=== PATIENT | male | born 1955 | race Caucasian/White ===

== ENCOUNTER → 2017-12-23 07:05 | Outpatient (CLI) | payer OTHER, SELFPAY ==
[2017-12-23 07:50] LABS: AST(SGOT) 34 U/L (15-37); Alanine Aminotransfer ALT/SGPT 41 U/L (16-61); Albumin, Serum 3.8 g/dL (3.2-5.0); Alkaline Phosphatase 57 U/L (45-117); Bilirubin, Direct 0.16 mg/dL (0.00-0.30); Cholesterol 135 mg/dL (200); Globulin 3.2 g/dL (2.2-4.2); High Density Lipoprotein 72 mg/dL; Triglycerides 108 mg/dL
[2017-12-23 07:51] LABS: Very Low Density Lipoprotein 22 mg/dL (5-40)
== END ==
PROVIDERS: Family Provider Family Medicine; PCP Family Medicine; Visit Provider Internal Medicine Cardiovascular Disease
DX: E78.5 Hyperlipidemia, unspecified (principal); Z79.899 Other long term (current) drug therapy
CPT/HCPCS: 36415; 80061; 80076

== ENCOUNTER 2021-12-27 14:15 | Emergency (ER) | payer OTHER, SELFPAY ==
[2021-12-27 14:16] VITALS: BP 126/72; PULSE 61; RESP 15; TEMP 36.8; O2SAT 98; BMI 26.2
[2021-12-27 14:26] VITALS: BP 124/74; BP 125/69; BP 129/68; PULSE 56; PULSE 59
--- NOTE | 2021-12-27 14:43 | CT_ITS ---
STUDY: CT BRAIN WITHOUT CONTRAST REASON FOR EXAM: Male, 66 years old. Dizziness. Headaches. Visual changes. RADIATION DOSAGE (If Supplied By Facility): CTDIvol = ( 44.99 ) mGy, DLP = ( 812.98 ) mGycm TECHNIQUE: Transaxial CT imaging of the brain was performed without administration of intravenous contrast material. Individualized dose optimization techniques were used for this CT. COMPARISON: No relevant priors. FINDINGS: Normal soft tissue structures. Normal calvarium. Normal size ventricles and extra-axial spaces for the patient''s age. Normal white matter tracts of the cerebral hemispheres. Normal basal ganglia and thalami. Normal brainstem. Normal cerebellum. There is no intracranial hemorrhage. There are no findings of an acute ischemic infarction. Normal visualized paranasal sinuses. CT/Brain/Head without Contrast IMPRESSION: Normal unenhanced CT scan of the brain. Electronically Signed: Socrates Gustafson MD at 15:23 EDT ,
--- NOTE | 2021-12-27 14:44 | EX.ED.DYSGE1 ---
HPI History of Present Illness Chief Complaint: General Illness Narrative Narrative: Patient presents with headache which has been intermittent for about 5 to 6 days at the same time he has 2 to 3-second episodes of blurred vision. He is asymptomatic currently. He has no weakness in arms or legs. He has no confusion. He has no nausea or vomiting. No paresthesias, no sensory deficits. He has no neck pain or stiffness. No history of trauma. [facility] Medical History (Updated 12/27/21 @ 16:[address] Luis Arevalo MD) Asthma Atherosclerotic heart disease of [place] coronary artery without angina pectoris Hyperlipidemia Old lateral wall myocardial infarction (03/13/15) Home Medications aspirin 81 mg tablet,delayed release 81 mg PO QDAY tab 12/21/17 [History Last Taken Unknown] albuterol sulfate 90 mcg/actuation aerosol inhaler 1 puff INHALATION Q6H PRN 12/24/17 [History Last Taken Unknown] omeprazole 40 mg capsule,delayed release 40 mg PO DAILY PRN 12/27/20 [History Last Taken Unknown] atorvastatin 80 mg tablet 80 mg PO QHS #90 tab 09/26/21 [Rx Last Taken Unknown] clopidogrel 75 mg tablet 75 mg PO QDAY #90 tab 09/26/21 [Rx Last Taken Unknown] metoprolol succinate 25 mg tablet,extended release 24 hr 12.5 mg PO DAILY #45 tab 12/13/21 [Rx Last Taken Unknown] Allergy/AdvReac Type Severity Reaction Status Date / Time No Known Allergies Allergy Verified 12/27/20 15:38 Family History Father CAD (coronary artery disease) CVA (cerebral vascular accident) Surgical History H/O arthroscopic knee surgery History of coronary artery stent placement (03/13/15) Social History Smoking Status: Unknown if ever smoked ROS ROS ED ROS Narrative Past medical history: Reviewed Medications: Reviewed Social history: Noncontributory Review of systems: All systems negative except as indicated General: No fever Eyes: As in HPI ENT: No upper airway congestion, normal voice Neck: No neck pain Cardiovascular: No chest pain Respiratory: No shortness of breath or cough Gastrointestinal: No abdominal pain, nausea vomiting or diarrhea Genitourinary: No dysuria Musculoskeletal: Denies myalgias no difficulty with ambulation Skin: No rash Neurological: Headache as in HPI. No memory loss, confusion or any focal weakness. Otherwise normal. Psych: No recent behavioral changes Hematologic: No easy bleeding or easy bruising EXAM Physical Exam Narrative Exam Narrative: Physical exam General: Well nourished, Well developed, No Acute Distress Head: Normocephalic, Atraumatic. No tenderness along the temporal artery region. Eyes: Conjunctiva not pale. Pupils are 3 mm and reactive. Visual acuity shows 20/30 and the right eye. No saccade or nystagmus. ENT: Moist mucous membranes Neck: Supple, Nontender, No lymphadenopathy Cardiovascular: Regular rate, Regular rhythm Respiratory: No distress, CTA bilaterally Abdomen: Soft, Nontender, Nondistended Back: Nontender, Normal Inspection. Negative for: CVA tenderness Extremities: Nontender, No edema Skin: Normal color, No rash Neurological: Alert, Normal Strength, Normal Sensation. Patient has normal cerebellar function including hohavx-uc-dcsm, qzcw-wj-ssku, normal Romberg and normal gait without ataxia. Psychological: Normal affect Const Vital Signs: 12/27/21 14:16 12/27/21 14:22 12/27/21 14:26 Temperature 98.2 F Temperature Source Temporal Pulse Rate 61 Pulse Rate [Lying] 56 L Pulse Rate [Sitting (for 1 minute prior to obtaining)] 59 L Pulse Rate [Standing (for 1 minute prior to obtaining)] 59 L Respiratory Rate 15 Respiratory Effort Normal Respiratory Pattern Normal Blood Pressure 126/72 H Blood Pressure [Lying] 129/68 H Blood Pressure [Sitting (for 1 minute prior to obtaining)] 125/69 H Blood Pressure [Standing (for 1 minute prior to obtaining)] 124/74 H Blood Pressure Mean 90 Blood Pressure Mean [Lying] 88 Blood Pressure Mean [Sitting (for 1 minute prior to obtaining)] 87 Blood Pressure Mean [Standing (for 1 minute prior to obtaining)] 90 Pulse Ox 98 Oxygen Delivery Method Room Air MDM MDM MDM Narrative Medical decision making narrative: Intraocular pressure done by me after tetracaine insertion shows intraocular pressure of [address] is negative. Patient appears well I do believe he may need an outpatient MRI for his headaches however right now there seems to be no neurological deficit and he appears well. I will discharge him in stable condition with ophthalmology and neurology follow-up. Lab Data Labs: Laboratory Results - last 24 hr 12/27/21 12/27/21 12/27/21 14:45 14:45 15:25 WBC 5.9 RBC 4.56 L Hgb 14.7 Hct 41.5 MCV 91.0 MCH 32.2 H MCHC 35.4 RDW Std Deviation 44.1 H RDW Coeff of Bib 13.2 Plt Count 184 MPV 10.5 Immature Gran % (Auto) 0.200 Neut % (Auto) 60.6 Lymph % (Auto) 30.1 [place] % (Auto) 8.1 Eos % (Auto) 0.5 Baso % (Auto) 0.5 Absolute Neuts (auto) 3.6 Absolute Lymphs (auto) 1.79 Nucleated RBC % 0 ESR 1 Sodium Cancelled 138 Potassium Cancelled 3.5 Chloride Cancelled 106 Carbon Dioxide Cancelled 28.0 Anion Gap Cancelled 4 L BUN Cancelled 10 Creatinine Cancelled 0.84 Estim Creat Clear Calc Cancelled 83.06 Est GFR (MDRD) Af Amer Cancelled 117 Est GFR (MDRD) Non-Af Cancelled 97 BUN/Creatinine Ratio Cancelled 11.8 Glucose Cancelled 108 H Calcium Cancelled 8.6 Total Bilirubin Cancelled 0.60 AST Cancelled 34 ALT Cancelled 46 Alkaline Phosphatase Cancelled 66 Total Protein Cancelled 6.6 Albumin Cancelled 3.6 Globulin Cancelled 3.0 Albumin/Globulin Ratio Cancelled 1.2 Radiography Diagnostic Testing: Clinical Impression(s) from Imaging Studies Brain CT 12/27/21 14:43 IMPRESSION: Normal unenhanced CT scan of the brain. Electronically Signed: Socrates Gustafson MD at 15:23 EDT , Sinus rhythm with a rate of 55. Normal ME and QTc intervals. No ischemic changes. Interpreted by emergency doctor Discharge Plan Triage Chief Complaint: General Illness ED Provider: Luis Arevalo Dx/Rx/DC Orders Clinical Impression: Headache, Acute eye pain Instructions: Medicine for Pain, Understanding Headache Pain Prescriptions: No Action aspirin [Adult Low Dose Aspirin] 81 mg tablet,delayed release (DR/EC) 81 mg PO QDAY RF: 0 albuterol sulfate [ProAir HFA] 90 mcg/actuation HFA aerosol inhaler 1 puff INHALATION Q6H PRN (Reason: Cough) RF: 0 omeprazole 40 mg capsule,delayed release(DR/EC) 40 mg PO DAILY PRN (Reason: Cough) RF: 0 clopidogrel 75 mg tablet 75 mg PO QDAY Qty: 90 RF: 4 atorvastatin 80 mg tablet 80 mg PO QHS Qty: 90 RF: 3 metoprolol succinate 25 mg tablet extended release 24 hr 12.5 mg PO DAILY Qty: 45 RF: 3 Primary Care Provider: Care Physician,No Primary Referrals: Paul Cao MD [NON-STAFF] - 3-5 Days Jose Alfredo Cali MD [STAFF PHYSICIAN] - 3-5 Days Care Physician,No Primary [Primary Care Provider] - Disposition Disposition: Home, Self Care
--- NOTE | 2021-12-27 14:47 | EKG12_ITS ---
Test Reason : DIZZINESS Blood Pressure : / mmHG Vent. Rate : 055 BPM Atrial Rate : 055 BPM P-R Int : 184 ms QRS Dur : 086 ms QT Int : 426 ms P-R-T Axes : 011 -04 008 degrees QTc Int : 407 ms Sinus bradycardia Otherwise normal ECG Confirmed by ELLA YAO, RYAN ([id number]), supervising editor trailer RADHA SILVA ([id number]) on 01/02/2022 12:41:46 PM Referred By: NADEEN Confirmed By:RYAN JARAMILLO MD
[2021-12-27 14:56] LABS: Absolute Lymphocyte Count 1.79 X10^3/uL (0.83-4.51); Absolute Neutrophil Count 3.6 X10^3/uL (2.0-7.7); Basophil# 0.03 X10^3/uL; Basophil% 0.5 % (0-1); Eosinophil# 0.03 X10^3/uL; Eosinophils% 0.5 % (0-5); Hematocrit 41.5 % (40-54); Hemoglobin 14.7 g/dL (13.0-16.5); Lymphocyte # 1.79 X10^3/ul (0.83-4.51); Lymphocyte % 30.1 % (19-41); Mean Corp Hgb Conc 35.4 g/dL (32-36); Mean Corpuscular Hgb 32.2 pg (27.0-32.0); Mean Platelet Vol. 10.5 fl (6.2-12.0); Monocyte# 0.48 X10^3/uL; Monocyte% 8.1 % (0-10); NRBC Flagged by Analyzer 0 % (0-5); Neutrophil % 60.6 % (47-70); Platelet Count 184 K/mm3 (150-450); RBC Distribution Width CV 13.2 % (11.6-14.6); RBC Distribution Width SD 44.1 fl (35.1-43.9); Red Blood Count 4.56 M/mm3 (4.6-6.2); White Blood Count 5.9 K/mm3 (4.4-11.0)
[2021-12-27 15:01] LABS: Erythrocyte Sedimentation Rate 1 mm/hr (0-20)
[2021-12-27] MEDS: Tetracaine 0.5% Ophthalmic Bottle 1 DRP RIGHT EYE (15:16)
[2021-12-27 16:17] LABS: ALB/GLOB Ratio 1.2 RATIO (0.9-2.4); AST(SGOT) 34 U/L (15-37); Alanine Aminotransfer ALT/SGPT 46 U/L (16-61); Albumin, Serum 3.6 g/dL (3.2-5.0); Alkaline Phosphatase 66 U/L (45-117); Anion Gap 4 (5-15); BUN 10 mg/dL (7-18); BUN/Creat Ratio 11.8 RATIO (10-20); Calcium,Total 8.6 mg/dL (8.5-10.1); Chloride 106 mmol/L (98-107); Creatinine, Serum 0.84 mg/dL (0.70-1.30); EST Glomerular Filtration Rate 97 mL/min (>60); Est Glom Filt Rate - Afr Amer 117 mL/min (>60); Estimated Creatinine Clearance 83.06 ml/min; Glucose 108 mg/dL (74-106); Potassium 3.5 mmol/L (3.5-5.1); Protein, Total 6.6 g/dL (6.4-8.2); Sodium Level 138 mmol/L (136-145)
--- NOTE | 2021-12-27 16:18 | CM.ED ---
SW Note Referral Source: Case Find Referral Reason: NO PCP SW met with patient. Patient confirmed he had no PCP. SW provided patient with [facility] Healthcare Provider list. SW remains available if needs arise. Plan: Resources Valeria BOUCHER
[2021-12-27 16:55] VITALS: BP 116/72; PULSE 68; RESP 15; O2SAT 97
== END 2021-12-27 16:56 | disposition home or self-care (01) ==
PROVIDERS: Emergency Provider Emergency Medicine; Visit Provider Emergency Medicine
DX: H57.11 Ocular pain, right eye (principal); R51.9 Headache, unspecified; E78.5 Hyperlipidemia, unspecified; I25.10 Atherosclerotic heart disease of native coronary artery without angina pectoris; J45.909 Unspecified asthma, uncomplicated; I25.2 Old myocardial infarction; Z79.82 Long term (current) use of aspirin; Z79.02 Long term (current) use of antithrombotics/antiplatelets; Z79.899 Other long term (current) drug therapy; Z95.5 Presence of coronary angioplasty implant and graft
CPT/HCPCS: 70450; 80053; 85025; 85652; 93005; 99285; A4216

== ENCOUNTER 2021-12-30 05:59 | Outpatient (CLI) | payer OTHER, SELFPAY ==
[2021-12-30 08:04] LABS: AST(SGOT) 36 U/L (15-37); Alanine Aminotransfer ALT/SGPT 48 U/L (16-61); Albumin, Serum 3.8 g/dL (3.2-5.0); Alkaline Phosphatase 71 U/L (45-117); Bilirubin, Direct 0.21 mg/dL (0.00-0.30); Cholesterol 140 mg/dL (200); Globulin 3.2 g/dL (2.2-4.2); High Density Lipoprotein 80 mg/dL; PSA,Total - Annual Screen 1.62 ng/mL (0.00-4.00); Triglycerides 88 mg/dL; Very Low Density Lipoprotein 18 mg/dL (5-40)
== END 2021-12-30 23:59 | disposition home or self-care (01) ==
LOC: LAB 06:00
PROVIDERS: Referring Provider Internal Medicine Cardiovascular Disease; Visit Provider Internal Medicine Cardiovascular Disease
DX: I25.10 Atherosclerotic heart disease of native coronary artery without angina pectoris (principal); E78.5 Hyperlipidemia, unspecified; Z12.5 Encounter for screening for malignant neoplasm of prostate
CPT/HCPCS: 36415; 80061; 80076; 84153; G0103

== ENCOUNTER → 2022-01-14 | Outpatient (CLI) | payer OTHER, SELFPAY ==
--- NOTE | 2022-01-14 06:29 | MRI_ITS ---
STUDY: MRA OF THE HEAD WITHOUT CONTRAST REASON FOR EXAM: Male, 66 years old. BROTHERS/visual disturbance/lightheadedness TECHNIQUE: 3-D gmra-vc-xekown (TOF) imaging was performed with MIPs. The study was performed unenhanced. COMPARISON: None. FINDINGS: Normal bilateral petrous carotid arteries. Normal right cavernous carotid artery with a normal supraclinoid bifurcation. Normal left cavernous carotid artery with a normal supraclinoid bifurcation. Normal right A1 segments of the anterior cerebral artery. Normal left A1 segments of the anterior cerebral artery. Normal intact anterior communicating artery (ACOM). Normal bilateral A2 segments of the anterior cerebral arteries. Normal right M1 and M2 segments of the middle cerebral arteries, with a normal M1 bifurcation. Normal left M1 and M2 segments of the middle cerebral arteries, with a normal M1 bifurcation. Normal right posterior communicating artery (PCOM). Normal left posterior communicating artery (PCOM). Normal bilateral vertebral arteries. Normal basilar artery with a normal basilar bifurcation. The visualized bilateral superior cerebellar (SCA) arteries are normal. Normal bilateral P1, P2 and visualized P3 segments of the posterior cerebral arteries. There is no demonstrated aneurysm of the [place]. There is no major vessel occlusion or hemodynamically significant stenosis. There is no demonstrated abnormality of the visualized brain. MRI/MRA Head ONLY without Contrast IMPRESSION: Normal MRA of the head. Electronically Signed: Luis Raymond MD at 8:44 EDT ,
--- NOTE | 2022-01-14 06:29 | MRI_ITS ---
STUDY: MRI BRAIN WITHOUT CONTRAST REASON FOR EXAM: Male, 66 years old. BROTHERS/dizziness/vision disturbance TECHNIQUE: Standardized multiplanar fat and water weighted pulse sequences were obtained. COMPARISON: 04/24/[address] FINDINGS: Normal size of the ventricles and extra-axial spaces for the patient''s age. Normal white matter tracts of the supratentorial brain. There is a few tiny foci of FLAIR hyperintensities in the left more than right brain, which can be normal, and can also be seen in the setting of migraine headaches. There is no evidence for recent intracranial ischemia or other cause of cytotoxic edema on diffusion weighted imaging (DWI). Normal T2* images of the brain without demonstrated susceptibility artifact. There is no demonstrated hemosiderin stain. Normal bilateral basal ganglia. Normal thalami. There is no extra-axial fluid accumulation. Normal flow voids within the major intracranial circulation suggesting patency by spin echo criteria. Normal sella turcica, pituitary gland, infundibular stalk, optic chiasm and hypothalamus. Normal tectal plate and pineal gland. Normal midbrain, roman and medulla. Normal cerebellum. Normal basal cisterns. Normal bilateral temporal bones. Normal bilateral internal auditory canals. No demonstrated orbital abnormality, within the constraints of a routine brain study. Normal visualized paranasal sinuses. Normal calvarium and skull base. Normal visualized soft tissue structures. Normal visualized upper cervical spine. MRI/Brain without Contrast IMPRESSION: A few punctate FLAIR hyperintensities in the left more than right brain can be seen in the setting of migraine headaches. Electronically Signed: Luis Raymond MD at 8:41 EDT ,
== END | disposition home or self-care (01) ==
LOC: MRI 06:29
PROVIDERS: PCP Internal Medicine; Referring Provider Internal Medicine; Visit Provider Internal Medicine
DX: H57.10 Ocular pain, unspecified eye (principal); R51.9 Headache, unspecified; R55 Syncope and collapse; H54.61 Unqualified visual loss, right eye, normal vision left eye
CPT/HCPCS: 70544; 70551

== ENCOUNTER → 2022-01-28 | Outpatient (CLI) | payer OTHER, SELFPAY ==
--- NOTE | 2022-01-28 13:08 | CDU_ITS ---
Reason For Study: syncope Rt. Velocities/BP Lt. Velocities/BP Prox CCA 95.6/13.4 cm/sec. Prox CCA 94.3/22.6 cm/sec. Mid CCA 69.5/12.1 cm/sec. Mid CCA 78.6/17.3 cm/sec. Dist CCA 61.7/12.1 cm/sec. Dist CCA 73.4/14.7 cm/sec. Prox ICA 47.3/9.5 cm/sec. Prox ICA 68.2/16.0 cm/sec. Mid ICA 57.8/21.3 cm/sec. Mid ICA 47.6/12.4 cm/sec. Dist ICA 82.5/23.9 cm/sec. Dist ICA 66.2/22.3 cm/sec. Rt. ICA/CCA = 1.2. Lt. ICA/CCA = .9. Prox ECA 82.6/8.2 cm/sec. Prox ECA 66.9/10.8 cm/sec. Rt. Vert. 42.1/10.8 cm/sec. Lt. Vert. 34.4/10.2 cm/sec. Right Extracranial There is intimal thickening but no significant atherosclerotic plaque noted in the right common carotid artery. There is heterogeneous, irregular atherosclerotic plaque noted in the right internal carotid artery. There is intimal thickening but no significant atherosclerotic plaque noted in the right external carotid artery. Antegrade flow is noted in the right vertebral artery. Left Extracranial There is intimal thickening but no significant atherosclerotic plaque noted in the left common carotid artery. There is intimal thickening but no significant atherosclerotic plaque noted in the left internal carotid artery. There is intimal thickening but no significant atherosclerotic plaque noted in the left external carotid artery. Antegrade flow is noted in the left vertebral artery. Procedure Carotid Duplex 12780. This is a Carotid Duplex examination using B-mode, color flow and specral Doppler. The exam was diagnostic. Exam performed in department. VL/Carotid Duplex Ultrasound Interpretation Summary Minimal irregular plaque at the proximal right internal carotid artery with les s than 50% stenosis Less than 50% stenosis right external carotid artery Intimal thickening at the proximal left internal carotid artery with less than 50% stenosis Less than 50% stenosis left external carotid artery Patent and antegrade vertebral arteries bilaterally Ordering Physician: Trent Bartlett Performed By: Thaddeus Mock RVT
--- NOTE | 2022-01-28 13:08 | ECHOD_ITS ---
Reason For Study: Near syncope Procedure This was a 2D Doppler, Color Flow transthoracic echocardiogram. Exam performed in department. Left Ventricle Normal LV size. Left ventricular systolic function is normal. The estimated ejection fraction is 55 %. Segmental dysfunction with preserved ejection fraction (see wall motion). Lateral [place] : Hypokinetic. Right Ventricle Normal RV size. Normal systolic function. Atria Normal left atrium. Normal right atrium. Mitral Valve Normal mitral valve. Trivial eccentric mitral valve insufficiency. Tricuspid Valve Normal tricuspid valve. Mild tricuspid valve insufficiency. Aortic Valve Trisinus/trileaflet aortic valve. Trivial eccentric aortic valve insufficiency. Pulmonic Valve Normal pulmonic valve. Mild (1+) pulmonic valve insufficiency. Great Vessels Normal aortic root. The pulmonary artery is normal size. Normal inferior vena cava. Pericardium/Pleural No pericardial effusion. Medication 22 gauge I.V. with prn adaptor inserted into right arm. Performed a rapid injection of agitated mix of 9 cc saline and 1cc air to assess for atrial septal defect. MMode/2D Measurements & Calculations LVIDd: 4.6 cm IVSd: 1.2 cm Ao root diam: 3.8 cm LVIDs: 2.7 cm LVPWd: 0.93 cm RVDd: 3.2 cm FS: 41.7 % LAV(MOD-bp): 41.5 ml LVAd ap4: 34.7 cm2 LVAd ap2: 30.0 cm2 LAV(MOD-bp) Indexed: 22.0 ml/m2 LVLd ap4: 8.9 cm LVLd ap2: 8.8 cm LAV(MOD-sp2): 51.4 ml EDV(MOD-sp4): 112.9 ml EDV(MOD-sp2): 89.3 ml LAV(MOD-sp4): 33.3 ml EDV(sp4-el): 114.6 ml EDV(sp2-el): 87.3 ml LVAs ap4: 19.2 cm2 LVAs ap2: 17.0 cm2 LVLs ap4: 7.6 cm LVLs ap2: 7.5 cm ESV(MOD-sp4): 41.9 ml ESV(MOD-sp2): 37.2 ml ESV(sp4-el): 41.3 ml ESV(sp2-el): 33.1 ml EF(MOD-sp4): 62.9 % EF(MOD-sp2): 58.4 % EF(sp4-el): 64.0 % SV(MOD-sp4): 71.0 ml SV(MOD-sp2): 52.1 ml SV(sp4-el): 73.3 ml LA A4 area: 14.1 cm2 LA dimension(2D): 4.3 cm RA A4 area: 12.9 cm2 Doppler Measurements & Calculations MV E max carlton: 45.0 cm/sec Lat Peak E' Carlton: 7.7 cm/sec Med Peak E' Carlton: 4.9 cm/sec MV A max carlton: 65.7 cm/sec E/E' lat: 5.8 E/E' med: 9.2 MV E/A: 0.68 Ao V2 max: 138.4 cm/sec LV V1 max: 89.0 cm/sec PA V2 max: 103.8 cm/sec Ao max P.7 mmHg LV V1 max P.2 mmHg TR max carlton: 195.3 cm/sec TR max P.3 mmHg ECHO/Echo Complete Interpretation Summary Normal LV size. Left ventricular systolic function is normal. The estimated ejection fraction is 55 %. Trivial eccentric mitral valve insufficiency. Segmental dysfunction with preserved ejection fraction (see wall motion). Ordering Physician: Trent Bartlett Referring Physician: Cintia Hooks M.D. Performed By: Cecilia Lyon RDCS
== END | disposition home or self-care (01) ==
LOC: CVS 13:07
PROVIDERS: PCP Internal Medicine; Referring Provider Internal Medicine Cardiovascular Disease; Visit Provider Internal Medicine Cardiovascular Disease
DX: R55 Syncope and collapse (principal); H54.61 Unqualified visual loss, right eye, normal vision left eye
CPT/HCPCS: 93306; 93880; A4216

== ENCOUNTER → 2022-05-06 | Outpatient (CLI) | payer OTHER, SELFPAY ==
[2022-05-06 06:45] LABS: Lyme Ab Screen Interpretation REF LAB
[2022-05-08 07:38] LABS: Lyme Scn Total Ab w/Rflx Negative (Negative)
== END | disposition home or self-care (01) ==
LOC: LAB 06:43
PROVIDERS: PCP Internal Medicine; Referring Provider Internal Medicine; Visit Provider Internal Medicine
DX: Z91.89 Other specified personal risk factors, not elsewhere classified (principal)
CPT/HCPCS: 36415; 86618

== ENCOUNTER → 2022-07-30 | Outpatient (CLI) | payer OTHER, SELFPAY ==
[2022-07-30 10:10] LABS: AST(SGOT) 31 U/L (15-37); Alanine Aminotransfer ALT/SGPT 48 U/L (16-61); Albumin, Serum 3.7 g/dL (3.2-5.0); Alkaline Phosphatase 66 U/L (45-117); Bilirubin, Direct 0.26 mg/dL (0.00-0.30); Cholesterol 130 mg/dL (200); Globulin 2.9 g/dL (2.2-4.2); High Density Lipoprotein 81 mg/dL; Protein, Total 6.6 g/dL (6.4-8.2); Triglycerides 65 mg/dL; Very Low Density Lipoprotein 13 mg/dL (5-40)
== END | disposition home or self-care (01) ==
LOC: LAB 09:29
PROVIDERS: PCP Internal Medicine; Referring Provider Internal Medicine Cardiovascular Disease; Visit Provider Internal Medicine Cardiovascular Disease
DX: E78.00 Pure hypercholesterolemia, unspecified (principal)
CPT/HCPCS: 36415; 80061; 80076

== ENCOUNTER 2022-08-07 08:36 | Outpatient (CLI) | payer OTHER, SELFPAY | END 2022-08-07 23:59 | disposition home or self-care (01) | LOC: PSN 08:37 | PROVIDERS: PCP Internal Medicine; Referring Provider Internal Medicine Cardiovascular Disease; Visit Provider Internal Medicine Cardiovascular Disease | DX: H54.61 Unqualified visual loss, right eye, normal vision left eye (principal) | CPT/HCPCS: 93225; 93226 ==

== ENCOUNTER → 2023-01-07 | Outpatient (CLI) | payer OTHER, SELFPAY ==
--- NOTE | 2023-01-07 13:30 | CYST_PTH ---
PATIENT: JENIFFER STORM LOC: [facility] U#:[id number] AGE/SX: 67/M ROOM: RE01/07/[address]: Dr. Albaro Landeros MD : 1955 BED: DIS: 01/07/2023 SPEC #: [id number] RECD: 01/07/23 15:46 STATUS: SANDY REGuru #: [id number] KELSEY: 01/07/23 13:[address]: Albaro Landeros DEPT: SURGICAL PATHOLOGY RECD BY: Althea Perez ENTERED: 01/08/23 08:54 SP TYPE: Cyst OTHR DR: Dr. Cintia Hooks MD Tissues: CYST Procedures: Surgery Specimen Level V HEADER OPERATION: Excision of cyst on neck PRE-OP DIAGNOSIS: Neck cyst TISSUE SUBMITTED: Neck cyst MICROSCOPIC DIAGNOSIS Neck cyst, excision: Spindle cell/pleomorphic lipoma. See comment. AM:rex 01/19/2023 COMMENT This case was seen in consultation with Dr. Castelan from [facility]. The complete consultative report is viewable in EMR. The lesion is a somewhat circumscribed lesion of adipocytes, spindle cells and pleomorphic cells. MDM2 by FISH analysis is negative and supports the above diagnosis. This case was discussed with Dr. Landeros 01/12/[address] Garcia. Case has been reviewed in consultation with Dr. Frausto who concurs with the above diagnosis. IDC:[id number] MICROSCOPIC DESCRIPTION Slides are reviewed. GROSS DESCRIPTION Received is one container labeled with the patient's name and not further designated. The specimen consists of an ellipse of light maldonado skin measuring 8.0 x 3.5 x 0.8 cm. Attached to this is an irregular fragment of pink-yellow fatty tissue measuring 5.5 x 3.5 x 2.2 cm. The specimen is inked and serially sectioned to reveal homogenous yellow cut surfaces. [employer] sections are submitted in two cassettes. / AM:rex 01/08/2023 More sections are submitted in cassettes 3-7. / SJ:rex 01/09/2023 TC:1 CPT: 88956
== END | disposition home or self-care (01) ==
LOC: LABSPEC 15:50
PROVIDERS: PCP Internal Medicine; Referring Provider Surgery; Visit Provider Surgery
DX: Q18.8 Other specified congenital malformations of face and neck (principal)
CPT/HCPCS: 88304; 88307